=== PATIENT | female | born 1995 | race African-American/Black ===

== ENCOUNTER 2023-10-07 00:21 | Emergency (ER) | payer SELFPAY ==
[2023-10-07 02:03] LABS: Absolute Eosinophils 0.1 K/uL (0-0.5); Absolute Lymphocytes (CBC) 1.9 K/uL (0.7-4.9); Absolute Monocytes 0.4 K/uL (0.1-1.3); Absolute Neutrophil 4.2 K/uL (1.8-8.0); Basophils % 0.2 % (0-1.3); Eosinophils % 0.9 % (0-4.4); Hematocrit 28.7 % (36.0-45.0); Hemoglobin 9.1 g/dL (12.0-15.0); Lymphocytes % 28.7 % (15.3-44.8); MCHC 31.8 g/dL (32.0-36.0); MCV 59.9 fL (80-100); MPV 9.2 fL (7.6-11.3); Monocytes % 6.7 % (3.3-12.3); Neutrophils % 63.5 % (41.7-73.7); Nucleated Red Blood Cells % 0.1 % (0-0); Platelets 213 thou/uL (152-406); Red Cell Distribution Width 16.5 % (12.1-15.2)
[2023-10-07 02:22] LABS: Albumin 3.8 g/dL (3.4-5.0); Anion Gap 11.4 mEq/L (5.0-15.0); Bilirubin Total 0.6 mg/dL (0.2-1.0); Potassium 3.4 mEq/L (3.5-5.1); Protein, Total 7.8 g/dL (6.4-8.2)
[2023-10-07 02:35] LABS: Anisocytosis 1+; Blood Morphology Comment NOTED (NOT SEEN); Hypochromasia 1+; Microcytosis 2+; Ovalocytes SLIGHT; Platelet Estimate ADEQ; Poikilocytosis 1+; Polychromasia 1+; White Blood Cell Scan OK (OK)
[2023-10-07 02:36] LABS: Teardrop Cell FEW
--- NOTE | 2023-10-07 03:17 | EDPHYS ---
Physician Documentation [facility] Name: Benita Gay Age: 28 yrs Sex: Female : 1995 Arrival Date: 10/07/2023 Time: 00:21 Bed 16 Private MD: ED Physician Gerson Lubin HPI: 10/06 00:40 This 28 yrs old Female presents to ER via EMS with complaints of Altered Mental Status. ec2 00:40 Patient arrives today for evaluation of altered mental status. Patient reportedly may ec2 have had a seizure, unclear. Patient also with multiple alcoholic beverages tonight. No injuries falls or trauma. Denies any chest pain or difficulty breathing. Patient is on some seizure medication however unsure which.. 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 - Infectious Disease History:: Denies. - Social history:: Smoking status: Patient denies any tobacco usage or history of. Patient uses alcohol, occasionally. ROS: 00:40 Constitutional: as per hpi ec2 Exam: 00:40 Constitutional: GEN: NAD Head: atraumatic Eyes: EOMI Ears: External ears are ec2 normal. CV: regular rate LUNGS: no respiratory distress ABD: non-distended SKIN: no evidence of rashes MSK: no evidence of trauma. Neuro: Intact neurologic examination, no focal deficits appreciated. Vital Signs: 00:38 BP 111 / 78; Pulse 97; Resp 19; Temp 98.5(O); Pulse Ox 99% on R/A; Weight 87.09 kg; tm6 Height 5 ft. 3 in. ; Pain 9/10; 01:42 BP 98 / 67; Pulse 89; Resp 16; Pulse Ox 100% on R/A; pc2 02:49 BP 105 / 52; Pulse 86; Resp 16; Pulse Ox 100% on R/A; pc2 00:38 Body Mass Index 34.01 (87.09 kg, 160.02 cm) tm6 00:38 Pain Scale: Adult tm6 MDM: 00:37 Patient medically screened. ec2 00:40 Data reviewed: vital signs, nurses notes. ED course: Patient arrives today for ec2 evaluation of possible seizure as well as altered mental status. Examination remarkable for neuro intact individuals otherwise in no acute distress with a reassuring examination. Will obtain lab work, CT scan of the head. Possible electrolyte disturbances, or evaluate for , evaluate for intracranial mass, possible seizure.. 02:32 ED course: CBC shows slight anemia, metabolic profile with slight hypokalemia. ec2 testing negative. Pending CT imaging. . 03:17 ED course: CT scan of the head shows no acute intracranial process. Will unresponsive ec2 patient is well-appearing no acute distress. Will discharge home in the care of her loved 1. Return precautions given. Suspect possible seizure.. 18 00:38 Order name: CBC with Diff; Complete Time: 02:38 ec2 10/06 00:38 Order name: CMP; Complete Time: 02:32 ec2 10/06 00:38 Order name: Test, Serum; Complete Time: 02:32 ec2 10/06 02:36 Order name: CBC Smear Scan; Complete Time: 02:38 EDMS 10/06 00:38 Order name: CT Head Brain wo Cont ec2 10/06 00:38 Order name: IV Saline Lock; Complete Time: 01:41 ec2 10/06 00:38 Order name: Labs collected and sent; Complete Time: :41 ec2 Administered Medications: No medications were administered Disposition Summary: 10/07/23 03:17 Discharge Ordered Notes: Location: Home ec2 Condition: Stable ec2 Diagnosis - Other seizures ec2 Followup: ec2 - With: Private Physician - When: - Reason: Re-evaluation by your physician Discharge Instructions: - Discharge Summary Sheet ec2 - Seizure, Adult ec2 Forms: - Medication Reconciliation Form ec2 - Antibiotic Education ec2 - Prescription Opioid Use ec2 - Patient Portal Instructions ec2 - Leadership Thank You Letter ec2 Signatures: Dispatcher [employer] Gerson Em MD MD ec2 Selena Saldivar RN RN tm6 Corrections: (The following items were deleted from the chart) 00:41 00:40 PMHx: None; tm6 tm6
--- NOTE | 2023-10-07 03:17 | ER ---
Nurse's Notes [facility] Name: Benita Gay Age: 28 yrs Sex: Female : 1995 Arrival Date: 10/07/2023 Time: 00:21 Bed 16 Private MD: Diagnosis: Other seizures Presentation: 10/06 00:38 Chief complaint: EMS states: [place]. Patient tm6 started to throw up and felt like she might have a seizure. Coronavirus screen: Vaccine status: Patient reports receiving the 2nd dose of the covid vaccine. Ebola Screen: Patient negative for fever greater than or equal to 101.5 degrees Fahrenheit, and additional compatible Ebola Virus Disease symptoms Patient denies exposure to infectious person. Patient denies travel to an Ebola-affected area in the 21 days before illness onset. No symptoms or risks identified at this time. Initial Sepsis Screen: Does the patient meet any 2 criteria? No. Patient's initial sepsis screen is negative. Does the patient have a suspected source of infection? No. Patient's initial sepsis screen is negative. Risk Assessment: Do you want to hurt yourself or someone else? Patient reports no desire to harm self or others. Onset of symptoms was October 07, 2023. 00:38 Method Of Arrival: EMS: [facility] tm6 00:38 Acuity: STACEY 3 tm6 Triage Assessment: 00:40 General: Appears in no apparent distress. uncomfortable, Behavior is calm, cooperative. tm6 Pain: Complains of pain in left arm Pain does not radiate. Pain currently is 9 out of 10 on a pain scale. Quality of pain is described as sharp, shooting. EENT: No signs and/or symptoms were reported regarding the EENT system. Neuro: Level of Consciousness is awake, alert, obeys commands, Oriented to person, place, time, situation, Reports feeling like she was going to have a seizure earlier. Cardiovascular: Patient's skin is warm and dry. Respiratory: Airway is patent Respiratory effort is even, unlabored, Respiratory pattern is regular, symmetrical. GI: No signs and/or symptoms were reported involving the gastrointestinal system. Abdomen is flat, non-distended. : No signs and/or symptoms were reported regarding the genitourinary system. Derm: No signs and/or symptoms reported regarding the dermatologic system. Musculoskeletal: Reports pain in left arm Pain is 9 out of 10 on a pain scale. 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 - Infectious Disease History:: Denies. - Social history:: Smoking status: Patient denies any tobacco usage or history of. Patient uses alcohol, occasionally. Screenin:47 [facility] ED Fall Risk Assessment (Adult) History of falling in the last 3 months, tm6 including since admission Yes- single mechanical fall (1 pt) Confusion or Disorientation No (0 pts) Intoxicated or Sedated Yes (3 pts) Impaired Gait No (0 pts) Mobility Assist Device Used No (0 pt) Altered Elimination No (0 pt) Score/Fall Risk Level 3 or more points = High Risk Oriented to surroundings, Maintained a safe environment, Educated pt \T\ family on fall prevention, incl call for assistance when getting out of bed. Abuse screen: Denies threats or abuse. Denies injuries from another. Nutritional screening: No deficits noted. Tuberculosis screening: No symptoms or risk factors identified. Assessment: 01:16 General: Appears in no apparent distress. uncomfortable, well groomed, well developed, pc2 Behavior is calm, cooperative, appropriate for age, Smells of alcohol. Pain: Denies pain. Neuro: Strauss Agitation-Sedation Scale (RASS): -1 Drowsy Level of Consciousness is awake, alert, obeys commands, Oriented to person, place, situation. 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 Reports consumed large volume of alcohol at the beach. Cardiovascular: Patient's skin is warm and dry. Respiratory: Airway is patent Respiratory effort is even, unlabored, Respiratory pattern is regular, symmetrical. GI: Abdomen is flat, non-distended. : No signs and/or symptoms were reported regarding the genitourinary system. EENT: No signs and/or symptoms were reported regarding the EENT system. Derm: No signs and/or symptoms reported regarding the dermatologic system. Musculoskeletal: No signs and/or symptoms reported regarding the musculoskeletal system. 02:00 Reassessment: Patient appears in no apparent distress at this time. Patient and/or pc2 family updated on plan of care and expected duration. Pain level reassessed. Patient denies pain at this time. 03:00 Reassessment: Patient appears in no apparent distress at this time. Patient and/or pc2 family updated on plan of care and expected duration. Pain level reassessed. Patient is alert, oriented x 3, equal unlabored respirations, skin warm/dry/pink. Patient states feeling better. Patient states symptoms have improved. Vital Signs: 00:38 BP 111 / 78; Pulse 97; Resp 19; Temp 98.5(O); Pulse Ox 99% on R/A; Weight 87.09 kg; tm6 Height 5 ft. 3 in. ; Pain 9/10; 01:42 BP 98 / 67; Pulse 89; Resp 16; Pulse Ox 100% on R/A; pc2 02:49 BP 105 / 52; Pulse 86; Resp 16; Pulse Ox 100% on R/A; pc2 00:38 Body Mass Index 34.01 (87.09 kg, 160.02 cm) tm6 00:38 Pain Scale: Adult tm6 ED Course: 00:28 Patient arrived in ED. ec2 00:37 Gerson Lubin MD is Attending Physician. ec2 00:40 Triage completed. tm6 00:47 Patient has correct armband on for positive identification. Bed in low position. Call tm6 light in reach. Side rails up X2. Provided Education on: use of call nassar. Client placed on continuous cardiac and pulse oximetry monitoring. NIBP monitoring applied. Pulse ox on. NIBP on. Door closed. Noise minimized. Warm blanket given. Pillow given. 00:48 Arm band placed on. pc2 01:06 Nissa Yan, RN is Primary Nurse. pc2 01:35 Inserted saline lock: 20 gauge in right antecubital area, using aseptic technique. pc2 Blood collected. Flushed with 10 mL NS. 01:[address] via stretcher. pc2 01:41 CBC with Diff Sent. pc2 01:41 CMP Sent. pc2 01:41 Test, Serum Sent. pc2 01:53 CT Head Brain wo Cont In Process Unspecified. EDMS 02:58 No provider procedures requiring assistance completed. pc2 03:44 IV discontinued, intact, bleeding controlled, No redness/swelling at site. Pressure pc2 dressing applied. Administered Medications: No medications were administered Medication: 00:47 VIS not applicable for this client. tm6 Outcome: 03:17 Discharge ordered by . ec2 03:44 Discharged to home ambulatory, with friend, pc2 03:44 Condition: stable 03:44 Discharge instructions given to patient, friend, Instructed on discharge instructions, follow up and referral plans. Demonstrated understanding of instructions, follow-up care, 03:44 Patient left the ED. pc2 Signatures: Dispatcher [employer] EDGerson Cleveland MD MD ec2 Selena Saldivar RN RN tm6 Nissa Yan, RN RN pc2 Corrections: (The following items were deleted from the chart) 00:41 00:40 PMHx: None; tm6 tm6
[2023-10-07 04:47] VITALS: TEMP 98.5
[2023-10-07 04:48] VITALS: O2SAT 100
[2023-10-07 04:50] VITALS: BP 105/52
--- NOTE | 2023-10-09 14:25 | RAD REPORT ---
EXAM DESCRIPTION: CT - Head Brain Wo Cont - 10/09/2023 2:04 pm [facility]: CT HEAD WITHOUT IV CONTRAST CLINICAL HISTORY: 28 years Female; CONFUSED; Bed Name: 16 TECHNIQUE: Noncontrast CT head. All CT scans at this facility use dose modulation, iterative reconstruction, and/or weight based dosi ng when appropriate to reduce radiation dose to as low as reasonably achievable. COMPARISON: None. FINDINGS: Parenchyma: No acute hemorrhage, large territorial infarction, or mass effect. Ventricles and extra-axial spaces: Appropriate for age. Visualized paranasal sinuses: Clear. Mastoid air cells: Clear. Bones: No acute focal abnormality. Additional comment: None. IMPRESSION: No acute intracranial findings. Electronically signed by: Emilie Murray MD 10/07/2023 03:11 AM CDT RP Z9 Due to temporary technical issues with the PACS/Fluency reporting system, reports are being signed by the in house radiologists without review as a courtesy to insure prompt reporting. The interpreting radiologist is fully responsible for the content of the report.
== END 2023-10-07 03:44 | disposition home or self-care (01) ==
LOC: ER 00:21
DX: G40.89 Other seizures (principal)
CPT/HCPCS: 36415; 70450; 80053; 84703; 85025; 99284